=== PATIENT | male | born 1990 | race Caucasian/White ===

== ENCOUNTER 2017-01-12 18:29 | Emergency (ER) | payer OTHER ==
[~2017-01-12] VITALS: Ht 188 cm; Wt 152.3 kg
[~2017-01-12 18:29] MED LIST: ABILIFY20 MG PO; ADVAIR 250/28 DISKUS IH; ADVAIR IH; ALBUTEROL SULFAT3 M3 IH; ALBUTEROL0.83 MG/ML IH; ALEVE 220MG220 MG PO; ANTIBIOTIC; CELEXA 20MG20 MG/TAB PO; DOXYCYCLINE 10100 MG PO; FLEXERIL 1010 MG/TAB PO; FLEXERIL10 MG PO; FLOVENT 110MCG7.9 GM IH; INDERAL 10MG10 MG PO; KLONOPIN 0.5MG0.5 MG PO; LEVAQUIN 750MG750 M1 PO; LEXAPRO 10MG10 MG PO; LORTAB 5/500 501 TAB PO; MOBIC 7.5MG7.5 MG PO; MOBIC15 MG PO; NAPROSYN 2250 MG/TAB PO; NAPROSYN500 MG PO; NEURONTIN300 MG/CAP PO; NO HOME MEDICATIONS; NORCO 325 MG-51 TAB PO; NORCO 325 MG-7.1 TAB PO; PEPCID 20MG TAB20 MG PO; PERCOCET 325 MG1 TA2 PO; PHENERGAN 25 TA25 MG PO; PHENERGAN W/CO120 M1 PO; PHENERGAN W/CO120 ML PO; PHENERGAN25 MG RC; PREDNISONE10 MG PO; PREDNISONE20 MG PO; PRILOSEC 20MG20 MG PO; PROAIR HFA0.09 MG/AC IH; RT ADVAIR 228 DISKUS IH; RT ALBUTER2.5 MG/0.5 IH; SEROQUEL XR150 MG PO; SINGULAIR; SINGULAIR 110 MG/TAB PO; SINGULAIR10 MG PO; SOMA250 MG PO; TESSALON P100 MG/CAP PO; TESSALON PERLE200 MG PO; TUSS PO; ULTRAM 50MG TAB50 MG PO; WELLBUTRIN 100100 MG PO; WELLBUTRIN XL300 M1 PO; XOPENEX 1.1.25 MG/3 IH; XOPENEX 3 ML3 M1 IH; XOPENEX HF0.045 MG/A IH; ZITHROMAX 250M250 MG PO; ZITHROMAX Z PA250 MG PO; ZITHROMAX500 MG PO; ZOFRAN 4MG T4 MG/TAB PO
[2017-01-12 18:30] VITALS: TEMP 99.1
[2017-01-12 19:26] LABS: BASO # 0.1 (0.0-0.2); BASO % 0.5 % (0.0-2.0); EOS # 0.3 (0.0-0.7); EOS % 3.3 % (0-4.0); GRAN # 5.5 (1.4-6.5); GRAN % 58.5 % (42.2-75.2); HEMATOCRIT 46.9 % (42.0-52.0); HEMOGLOBIN 15.8 g/dl (13.5-18.0); LYMPH % 32.2 % (20.0-51.0); MEAN CELL VOLUME 81 fl (80.0-100.0); MEAN CORPUSCULAR HEMOGLOBIN 27 pg (27.0-31.0); MEAN CORPUSCULAR HGB CONC 34 g/dl (33.0-37.0); MEAN PLATELET VOLUME 8.8 fl (7.4-10.4); MONO # 0.5 (0.1-0.6); MONO % 5.2 % (1.7-9.3); PLATELET COUNT 339 K/mm3 (130-400); RED BLOOD COUNT 5.78 M/mm3 (4.20-5.60); REDCELL DISTRIBUTION WIDTH-CV 13.3 % (11.5-14.5); WHITE BLOOD COUNT 9.4 K/mm3 (4.8-10.8)
[2017-01-12 19:46] LABS: ADJUSTED CALCIUM 9.5 mg/dL (8.4-10.2); ALBUMIN 4.6 gm/dL (3.5-5.0); BILIRUBIN,TOTAL 0.8 mg/dL (0.0-1.0); CREATININE, serum 0.91 mg/dL (0.66-1.25); POTASSIUM 3.8 mmol/L (3.4-5.0); TOTAL PROTEIN 8.1 gm/dL (6.4-8.2)
[2017-01-12 20:06] LABS: PH 5 (5-8); SQUAMOUS EPITHELIAL None Seen /hpf; URINE APPEARANCE Clear; URINE BACTERIA None Seen /hpf; URINE BILIRUBIN Negative (NEGATIVE); URINE BLOOD Negative (NEGATIVE); URINE COLOR Yellow; URINE GLUCOSE Negative (NEGATIVE); URINE KETONE Negative (NEGATIVE); URINE RBC None Seen /hpf; URINE UROBILINOGEN Negative (NEGATIVE); URINE WBC 0-2 /hpf
[2017-01-12 22:40] VITALS: BP 128/65; PULSE 76
== END 2017-01-12 22:44 | disposition home or self-care (01) ==
LOC: COL.ER 18:29
PROVIDERS: Emergency Medicine
DX: R10.11 Right upper quadrant pain (principal); I49.3 Ventricular premature depolarization; F31.9 Bipolar disorder, unspecified; F17.210 Nicotine dependence, cigarettes, uncomplicated; Z90.49 Acquired absence of other specified parts of digestive tract
CPT/HCPCS: C9113; J2270; J2405; Q9967

== ENCOUNTER → 2017-03-12 | Outpatient (CLI) | payer OTHER ==
[~2017-03-12] MED LIST changes: +ASPIRIN E.C. 8181 MG PO; +FLEXERIL5 MG PO; +LATUDA40 MG PO; +LOPRESSOR 225 MG/TAB PO; +PRINIVIL5 MG PO; +TOPROL XL 25MG25 MG PO
== END ==
LOC: COL.VAS 09:45
DX: R07.89 Other chest pain (principal); R06.09 Other forms of dyspnea

== ENCOUNTER 2017-03-26 17:53 | Emergency (ER) | payer OTHER ==
[~2017-03-26] VITALS: Ht 188 cm; Wt 151.8 kg
[~2017-03-26 17:53] MED LIST changes: -ASPIRIN E.C. 8181 MG PO; -FLEXERIL5 MG PO; -LATUDA40 MG PO; -LOPRESSOR 225 MG/TAB PO; -PRINIVIL5 MG PO; -TOPROL XL 25MG25 MG PO
[2017-03-26 17:58] VITALS: TEMP 98.7
[2017-03-26] MEDS ORDERED: FLEXERIL5 MG PO (18:01)
[2017-03-26] MEDS ORDERED: WELLBUTRIN XL300 M1 PO (18:02)
[2017-03-26] MEDS ORDERED: LATUDA40 MG PO (18:02)
[2017-03-26] MEDS ORDERED: FLEXERIL 1010 MG/TAB PO (19:44)
[2017-03-26] MEDS ORDERED: NORCO 325 MG-51 TAB PO (19:44)
[2017-03-26 19:56] VITALS: BP 118/69; PULSE 80
== END 2017-03-26 19:57 | disposition home or self-care (01) ==
LOC: COL.ER 17:53
DX: M54.5 Low back pain (principal); F31.9 Bipolar disorder, unspecified; F17.210 Nicotine dependence, cigarettes, uncomplicated; F41.9 Anxiety disorder, unspecified; M19.90 Unspecified osteoarthritis, unspecified site; J45.909 Unspecified asthma, uncomplicated; Z98.890 Other specified postprocedural states; Z90.49 Acquired absence of other specified parts of digestive tract; Z87.39 Personal history of other diseases of the musculoskeletal system and connective tissue; X50.0XXA Overexertion from strenuous movement or load, initial encounter
CPT/HCPCS: J1885; J2360

== ENCOUNTER 2017-06-01 12:33 | Day surgery (SDC) | payer OTHER ==
[~2017-06-01] VITALS: Ht 188 cm; Wt 146.1 kg
[2017-06-01] VITALS (9 sets, daily range): BP systolic 92–125; BP diastolic 60–92; PULSE 71–106; TEMP 98.6
[~2017-06-01 12:33] MED LIST changes: +FLEXERIL5 MG PO; +LATUDA40 MG PO
[2017-06-01] MEDS ORDERED: PRINIVIL5 MG PO (12:53)
[2017-06-01 13:07] LABS: HEMATOCRIT 44.1 % (42.0-52.0); HEMOGLOBIN 15.3 g/dl (13.5-18.0); MEAN CELL VOLUME 79 fl (80.0-100.0); MEAN CORPUSCULAR HEMOGLOBIN 28 pg (27.0-31.0); MEAN CORPUSCULAR HGB CONC 35 g/dl (33.0-37.0); MEAN PLATELET VOLUME 8.8 fl (7.4-10.4); PLATELET COUNT 351 K/mm3 (130-400); RED BLOOD COUNT 5.56 M/mm3 (4.20-5.60); REDCELL DISTRIBUTION WIDTH-CV 13.2 % (11.5-14.5); WHITE BLOOD COUNT 6.6 K/mm3 (4.8-10.8)
[2017-06-01 13:09] LABS: INR 1.1 (0.8-3.0); PROTHROMBIN TIME 11.9 SECONDS (9.7-12.8)
[2017-06-01] MEDS ORDERED: MOBIC 7.5MG7.5 MG PO (13:29)
[2017-06-01 13:49] LABS: CALCIUM 9.6 mg/dL (8.4-10.2); CREATININE, serum 0.84 mg/dL (0.66-1.25); POTASSIUM 4.3 mmol/L (3.4-5.0)
[2017-06-01] MEDS ORDERED: TOPROL XL 25MG25 MG PO (15:38)
[2017-06-01] MEDS ORDERED: ASPIRIN E.C. 8181 MG PO (15:42)
[2017-06-01] MEDS ORDERED: LOPRESSOR 225 MG/TAB PO (15:48)
== END 2017-06-01 18:35 | disposition home or self-care (01) ==
LOC: COL.CAR 12:33
PROVIDERS: Internal Medicine Interventional Cardiology
DX: I50.1 Left ventricular failure, unspecified (principal); I42.9 Cardiomyopathy, unspecified; I49.3 Ventricular premature depolarization; F17.210 Nicotine dependence, cigarettes, uncomplicated
CPT/HCPCS: C1760; C1894; J2250; J3010; Q9967

== ENCOUNTER 2018-01-19 00:02 | Emergency (ER) | payer OTHER ==
[~2018-01-19] VITALS: Ht 182.9 cm; Wt 152.3 kg
[~2018-01-19 00:02] MED LIST changes: +ASPIRIN E.C. 8181 MG PO; +LOPRESSOR 225 MG/TAB PO; +PRINIVIL5 MG PO; +TOPROL XL 25MG25 MG PO
[2018-01-19 00:09] VITALS: BP 128/77; TEMP 98.9
[2018-01-19 02:06] VITALS: PULSE 91
== END 2018-01-19 02:06 | disposition home or self-care (01) ==
LOC: COL.ER 00:02
DX: G89.29 Other chronic pain (principal); M54.5 Low back pain; J45.909 Unspecified asthma, uncomplicated; F31.9 Bipolar disorder, unspecified; F41.9 Anxiety disorder, unspecified; F17.210 Nicotine dependence, cigarettes, uncomplicated; Z90.49 Acquired absence of other specified parts of digestive tract; Z98.890 Other specified postprocedural states; Z79.82 Long term (current) use of aspirin; X50.0XXA Overexertion from strenuous movement or load, initial encounter
CPT/HCPCS: J2360

== ENCOUNTER 2020-09-15 21:30 | Emergency (ER) | payer SELFPAY ==
[~2020-09-15] VITALS: Ht 188 cm; Wt 143.2 kg
[2020-09-15 21:42] VITALS: TEMP 97.9
[2020-09-15] MEDS ORDERED: PREDNISONE20 MG PO (22:05)
[2020-09-15 22:28] VITALS: BP 119/85; PULSE 85
== END 2020-09-15 22:28 | disposition home or self-care (01) ==
LOC: COL.ER 21:30
DX: M25.511 Pain in right shoulder (principal); Z88.0 Allergy status to penicillin; Z88.2 Allergy status to sulfonamides; Z87.891 Personal history of nicotine dependence; Z79.82 Long term (current) use of aspirin; X50.0XXA Overexertion from strenuous movement or load, initial encounter